=== PATIENT | female | born 1960 | race Caucasian/White ===

== ENCOUNTER 2024-07-16 13:50 | Day surgery (SDC) | payer OTHER, SELFPAY ==
[2024-07-14 11:12] VITALS: BMI 30.7
[2024-07-15 09:39] VITALS: BMI 30.7
[2024-07-16] VITALS (7 sets, daily range): BP systolic 111–131; BP diastolic 21–70; PULSE 68–95; RESP 9–18; TEMP 36.1–36.4; O2SAT 87–100; BMI 30.7
--- NOTE | 2024-07-16 | DI.RAD.S_ITS ---
PROCEDURE: XR LUMBAR SPINE 2-3V INDICATIONS: LAMI L4-5, MICRO DISCECTOMY L5-S1 TECHNIQUE: Multiple intraoperative views of the lumbar spine were acquired. COMPARISON: None. FINDINGS: Bones: Intraoperative fluoroscopic views demonstrate localization at the L4-5 and the L5-S1 level. IMPRESSION: Intraoperative fluoroscopic views of the lumbar spine. Dictated by: Lili Kelley M.D. on 07/17/2024 at 12:02 Approved by: Lili Kelley M.D. on 07/17/2024 at 12:03
--- NOTE | 2024-07-16 14:18 | PM.PREOP ---
Pre-operative Note Interval Note History & Physical reviewed/Exam performed by Physician: Yes Changes to H&P: No
[2024-07-16] MEDS: LACTATED RINGERS 1,000 ML 42 ML IV (14:41)
[2024-07-16] MEDS: ACETAMINOPHEN 325 MG TABLET 975 MG PO (14:41)
[2024-07-16] MEDS: CEFAZOLIN 2 GM/100 ML PREMIX 100 ML IV (15:02)
--- NOTE | 2024-07-16 15:11 | SUR.OPER ---
Prone on spine table, head in foam head support, padded chest and pelvic supports, gel pad at knees, lower legs supported by pillows; nipples, genitalia and toes free of pressure, arms secured on foam padded arm boards at <90 degrees abduction. Tape over blanket at thigh secured to table.
[2024-07-16] MEDS: BUPIVACAINE 0.25% (PF) 30 ML, EPINEPHrine 0.15 MG INJ (15:17)
--- NOTE | 2024-07-16 15:47 | P.OP_ITS ---
Operative Date/Time/Diagnoses Date of procedure: 07/16/24 Time of procedure: 15:00 Pre-op diagnosis: 1. L4-5 spinal stenosis 2. L5-S1 disc herniation Post-op diagnosis: same Procedure & Clinicians Procedure: 1. L4-5 laminectomies 2. L5-D0adnvk hemilaminectomy Same procedure as scheduled: Yes Indications: Patient has been having chronic back pain and worsening lumbar radiculopathy and symptoms of neurogenic claudication. Patient was found have severe L4-5 spinal stenosis and L5-S1 lateral recess stenosis correlating with her symptoms. Patient failed multiple conservative management with worsening pain weakness and numbness in her lower extremity. Patient has been having difficulty performing activity of daily living. After discussing risks benefits of treatment options, patient elected proceed with surgery. On the day of surgery, patient was found to have more right-sided dominant symptoms. Patient has L5-S1 hemilaminectomy was performed on the right side instead of the initial L5-S1 left microdiskectomy. Surgeon: Hector Prakash Material Control Specialist: Lynette Colin Click Yes if Unassisted: No Anesthesia Type: General Operative Notes Closure Type: primary Specimen(s): none sent Estimated Blood Loss (mL): 5 Blood products transfused: none Procedure in detail: Patient was seen in the preoperative area. Risks and benefits of the surgery was discussed with the patient. Informed consent was obtained from the patient and placed in the chart. Surgical site was marked. Patient was taken to the operative room. General anesthesia was administered. Prophylactic antibiotic was given to the patient less than 30 min before the incision was made. Patient was placed into a prone position on the Osmar table. Patient's back was then prepped and draped in the sterile fashion. Time-out was performed at this time. Using AP and lateral C-arm imaging the interval between L4-5 was identified and marked on patient's back. A 1 inch incision 1 in from midline was made on the left side. The fascia was incised in line with skin incision. Globus MARS retractors was placed inside the incision and docked onto the L4 lamina. Using microsurgical technique and operating microscope, a L4 laminectomy was performed using a Kerrison rongeur. Liagamentum flavum was resected at the site of the laminotomy. Either side of the dura was exposed. Bilateral partial facetcomies was performed to further decompress the lateral recess. Patient was also found to have significant amount of epidural lipomatosis. Epidural lipomatosis was resected using Kerrison rongeur and pituitary for additional decompression. After the laminectomy was completed, the area medial lateral superior and inf erior to the area of the laminectomy was inspected and explored using a micro curette. No other impinging structure was identified. The mars retractor was redirected over the L5-S1 interval. Using microsurgical technique and operative microscope a hemilaminectomy was performed at L5-S1 level. Kerrison rongeur a micro curette was used to free up the ligamentum flavum which was resected during the process of a hemilaminectomy for the further decompressing the epidural space and lateral recess. The wound was then irrigated with sterile normal saline. 40 mg Depo-Medrol was placed into the epidural space. The deep fascia was closed with 1-0 Vicryl. The subcutaneous tissue was closed with 2-0 Vicryl. The skin was closed with 4-0 Monocryl. Patient tolerated the procedure well. There were no complications. Patient was transferred recovery room in stable condition. The Operation could not have been safely performed without compromising the technical result or length of the procedure, without the assistance of a skilled director medical surgical. The director medical surgical was medically necessary for proper positioning, retraction and manipulation of instruments, proper exposure, surgical preparation, and manipulation of tissue. Complications: none Post-operative Condition: stable Disposition: PACU Plan for aftercare: Discharge to home
[2024-07-16] MEDS: OXYCODONE IR 5 MG TABLET PO (16:22)
== END 2024-07-16 17:01 | disposition home or self-care (01) ==
PROVIDERS: Family Provider Specialist; PCP Family Medicine; Referring Provider Orthopaedic Surgery Orthopaedic Surgery of the Spine; Visit Provider Orthopaedic Surgery Orthopaedic Surgery of the Spine
PROC: (CPT 63047; principal; 2024-07-16 15:15)
DX: M48.062 Spinal stenosis, lumbar region with neurogenic claudication (principal); M51.26 Other intervertebral disc displacement, lumbar region; M54.16 Radiculopathy, lumbar region; E88.2 Lipomatosis, not elsewhere classified
CPT/HCPCS: 63047; 63030; 72100; 76000; J0171; J0690; J1100; J2250; J2405; J2704; J2919; J3010; J3490